=== PATIENT | female | born 1950 | race Caucasian/White ===

== ENCOUNTER → 2016-08-13 | Day surgery (SDC) | payer MEDICARE, OTHER ==
[~2016-08-13] MED LIST: Lactated Ringers 1,000 ML IV SCH; Propofol 200 MG/20 ML SDV IV ONE
[2016-08-13 08:45] VITALS: BP 123/71
--- NOTE | 2016-08-13 13:58 | OR ---
DATE OF OPERATION: 08/13/2016 PREOPERATIVE DIAGNOSIS: SCREENING COLONOSCOPY. POSTOPERATIVE DIAGNOSIS: SCREENING COLONOSCOPY. SURGEON: Po Smith MD PROCEDURE: FULL-LENGTH COLONOSCOPY WITH POLYP REMOVAL X1. 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 COMPLICATIONS: None. SPECIMEN: Small tubular adenoma, ascending colon. FINDINGS: 1. Full-length colonoscopy. 2. Small flat tubular adenoma, distal ascending colon. RECOMMENDATIONS: Routine colonoscopy in 5 years. INDICATIONS: The patient was in for a physical with her regular provider. Screening colonoscopy was recommended. DESCRIPTION OF PROCEDURE: The patient was prepped and draped, placed in the left lateral decubitus position. A lubricated Olympus colonoscope was inserted and easily advanced to the cecum. Direct visualization of the ileocecal valve and appendiceal orifice was accomplished. The bowel prep was adequate. Upon withdrawal of the scope, cecal pouch and most of the ascending colon appeared benign. Along the haustral fold, the patient had a small flat tubular adenoma/hyperplastic polyp, removed in its entirety with 2 cold forceps biopsies. The rest of the ascending and transverse colon were unremarkable. Throughout the left colon I found no signs of any polyps, masses, ulcerations, or bleeding sites. No vascular abnormalities or signs of colitis. No significant diverticular disease. The rectal vault was unremarkable. Retroflexion of the scope in the rectum showed no perianal lesions. Air was then suctioned. Scope was removed without complication. KHURRAM/LESLEE /[id number]
== END ==
LOC: CC.SDS 07:15
PROVIDERS: ATTEND Family Medicine
PROC: 0DBK8ZX Excision of Ascending Colon, Via Natural or Artificial Opening Endoscopic, Diagnostic (ICD-10-PCS; principal; 2016-08-13)
DX: Z12.11 Encounter for screening for malignant neoplasm of colon (principal); D12.2 Benign neoplasm of ascending colon
CPT/HCPCS: 00810; 45380; J2704; J7120; 88305

== ENCOUNTER → 2021-07-10 | Day surgery (SDC) | payer MEDICARE, OTHER ==
[~2021-07-10] MED LIST changes: +Ketamine 200 MG/20 ML MDV ONE; -Propofol 200 MG/20 ML SDV IV ONE; +Propofol 200 MG/20 ML SDV ONE
[2021-07-10 09:05] VITALS: BP 140/66; PULSE 53
== END ==
LOC: CC.SDS 07:04
PROVIDERS: ATTEND Family Medicine
DX: Z12.11 Encounter for screening for malignant neoplasm of colon (principal); D12.2 Benign neoplasm of ascending colon; D12.3 Benign neoplasm of transverse colon; H91.90 Unspecified hearing loss, unspecified ear; E78.5 Hyperlipidemia, unspecified; E55.9 Vitamin D deficiency, unspecified; L82.1 Other seborrheic keratosis; H26.9 Unspecified cataract; Z87.891 Personal history of nicotine dependence; Z86.010 Personal history of colon polyps; Z98.890 Other specified postprocedural states; Z79.82 Long term (current) use of aspirin; Z79.899 Other long term (current) drug therapy
CPT/HCPCS: 88305; J2704; J7120

== ENCOUNTER 2024-03-09 07:47 | Day surgery (SDC) | payer MEDICARE, OTHER ==
[2024-03-09] MEDS: Lactated Ringers 1,000 ML IV SCH (08:01)
[2024-03-09] MEDS ORDERED: Propofol 200 MG/20 ML SDV ONE (08:13)
[2024-03-09] MEDS ORDERED: Midazolam 1 MG/ML 2 ML SDV ONE (08:13)
[2024-03-09] MEDS ORDERED: Ketamine 200 MG/20 ML MDV ONE (08:13)
[2024-03-09] MEDS ORDERED: fentaNYL 50 MCG/ML SDV ONE (08:13)
[2024-03-09] MEDS ORDERED: Flumazenil 0.1 MG/ML 10 ML MDV ONE (08:13)
[2024-03-09 09:51] VITALS: BP 122/56; PULSE 56
== END 2024-03-09 09:40 | disposition home or self-care (01) ==
LOC: CC.SDS 07:47
PROVIDERS: ATTEND Family Medicine
DX: Z12.11 Encounter for screening for malignant neoplasm of colon (principal); D12.2 Benign neoplasm of ascending colon; D12.3 Benign neoplasm of transverse colon; E78.5 Hyperlipidemia, unspecified; Z79.82 Long term (current) use of aspirin; Z79.899 Other long term (current) drug therapy; Z86.0100 Personal history of colon polyps, unspecified; Z87.891 Personal history of nicotine dependence
CPT/HCPCS: 00812; 99100; J2250; J2704; J3010; J3490; J7120